=== PATIENT | female | born 1955 | race African-American/Black ===

== ENCOUNTER 2019-10-26 22:34 | Inpatient (IN) | payer OTHER, MEDICAID ==
[~2019-10-26] VITALS: Ht 162.6 cm; Wt 104.4 kg
[~2019-10-26 22:34] MED LIST: ALBU18HF2 IH; P50 PO; THEO200T17 PO
[2019-10-27] VITALS (14 sets, daily range): BP systolic 88–171; BP diastolic 36–119
[2019-10-27] MEDS ORDERED: ONDANSETRON HCL 4MG/2ML INJ IV STA (00:08)
[2019-10-27] MEDS ORDERED: METHYLPREDNISOLONE SOD SUCC 125 MG/2 ML VIAL IV STA (00:08)
[2019-10-27] MEDS ORDERED: IPRATROPIUM BROMIDE (0.02%) 0.5MG/2.5ML NEB HHN STA (00:08)
[2019-10-27] MEDS ORDERED: MAGNESIUM 2 G PREMIX 50 ML IV ONE (00:15)
[2019-10-27 00:46] LABS: HEMATOCRIT. 40.4 % (36.0-48.0); HEMOGLOBIN. 13.3 g/dL (12.0-16.0); MEAN CORPUSCULAR HEMOGLOBIN 26.9 pg (28.0-32.0); MEAN CORPUSCULAR VOLUME 81.7 fL (81.0-99.0); MEAN PLATELET VOLUME 9.2 fl (7.4-10.4); PLATELET 247 x1000/uL (130-400); RED BLOOD CELL COUNT 4.95 mill/uL (4.2-5.4); RED CELL DISTRIBUTION WIDTH 13.9 % (11.6-14.6)
[2019-10-27 00:54] LABS: CHLORIDE 105 mEq/L (98-107)
[2019-10-27] MEDS: ALBUTEROL (0.083%) 2.5MG/3ML NEB HHN SCH ×3 (00:58→02:35)
[2019-10-27 04:59] LABS: BG BASE EXCESS -0.1 mmol/L (-2.0-2.0); BG BILEVEL POS AIRWAY PRESSURE 15/5; BG CARBOXYHEMOGLOBIN 0.1 % (0.5-1.5); BG DEOXYHEMOGLOBIN 2.2 % (0.0-5.0); BG FRACTION INSPIRED OXYGEN 50; BG HCO3 ACT 25.4 mmol/L (22.0-26.0); BG METHEMOGLOBIN 0.2 % (0.0-1.5); BG OXYGEN SATURATION 97.8 % (92.0-98.5); BG OXYHEMOGLOBIN 97.5 % (94.0-97.0); BG PCO2 44.4 mmHg (35.0-45.0); BG PH 7.375 (7.350-7.450); BG PO2 107.4 mmHg (75.0-100.0); BG SAMPLE SITE RIGHT RADIAL; BG TOTAL HEMOGLOBIN 12.8 g/dL (12.0-18.0); BG VENT MODE MASK - BIPAP; BG VENT RATE 20 set
[2019-10-27 05:28] LABS: PLATELET ESTIMATE NORMAL
[2019-10-27] MEDS ORDERED: ALBUTEROL (0.083%) 2.5MG/3ML NEB HHN STA (07:34)
[2019-10-27] MEDS ORDERED: POTASSIUM CHLORIDE 20MEQ TABLET SR PO ONE (08:30)
[2019-10-27] MEDS ORDERED: ACETAMINOPHEN 325MG TABLET PO PRN (08:30)
[2019-10-27] MEDS ORDERED: ONDANSETRON HCL 4MG/2ML INJ IV PRN (08:30)
[2019-10-27] MEDS ORDERED: METHYLPREDNISOLONE SOD SUCC 125 MG/2 ML VIAL IV SCH (08:30)
[2019-10-27] MEDS ORDERED: GUAIFENESIN 200MG/10ML SUGAR FREE UDC PO PRN (08:30)
[2019-10-27] MEDS ORDERED: LORAZEPAM 0.5MG TABLET PO PRN (08:30)
[2019-10-27] MEDS ORDERED: IPRATROPIUM/ALBUTEROL 0.5-3(2.5)MG/3ML NEB HHN PRN ×2 (08:30→15:00)
[2019-10-27 10:10] LABS: *AMPHETAMINES SCREEN URINE NEGATIVE (NEGATIVE); *BARBITURATES SCREEN URINE NEGATIVE (NEGATIVE); *BENZODIAZEPINES SCREEN URINE NEGATIVE (NEGATIVE); *COCAINE SCREEN URINE NEGATIVE (NEGATIVE); METHADONE URINE SCREEN NEGATIVE (NEGATIVE); OPIATES URINE SCREEN NEGATIVE (NEGATIVE)
[2019-10-27 10:11] LABS: CANNABINOID URINE SCREEN PRESUMTIVE POSITIVE (NEGATIVE); PHENCYCLIDINE URINE SCREEN NEGATIVE (NEGATIVE)
[2019-10-27] MEDS: CLONIDINE 0.1MG TABLET PO PRN (11:03)
[2019-10-27] MEDS ORDERED: IPRATROPIUM BROMIDE (0.02%) 0.5MG/2.5ML NEB HHN PRN (13:00)
[2019-10-27] MEDS: METHYLPREDNISOLONE SOD SUCC 125 MG/2 ML VIAL IV SCH ×4 (13:46→20:06)
[2019-10-27] MEDS: IPRATROPIUM BROMIDE (0.02%) 0.5MG/2.5ML NEB HHN SCH ×3 (15:25→21:04)
[2019-10-27] MEDS: AMLODIPINE 5MG TABLET PO SCH (15:47)
[2019-10-27] MEDS ORDERED: IPRATROPIUM/ALBUTEROL 0.5-3(2.5)MG/3ML NEB HHN SCH (16:00)
[2019-10-27 18:29] LABS: BG BASE EXCESS 1.4 mmol/L (-2.0-2.0); BG BILEVEL POS AIRWAY PRESSURE 15/5 (16); BG CARBOXYHEMOGLOBIN 0.2 % (0.5-1.5); BG DEOXYHEMOGLOBIN 3.4 % (0.0-5.0); BG FRACTION INSPIRED OXYGEN 35; BG HCO3 ACT 29.9 mmol/L (22.0-26.0); BG METHEMOGLOBIN 0.2 % (0.0-1.5); BG OXYGEN SATURATION 96.6 % (92.0-98.5); BG OXYHEMOGLOBIN 96.2 % (94.0-97.0); BG PCO2 65.2 mmHg (35.0-45.0); BG PH 7.279 (7.350-7.450); BG PO2 93.4 mmHg (75.0-100.0); BG SAMPLE SITE RIGHT RADIAL; BG TOTAL HEMOGLOBIN 13.8 g/dL (12.0-18.0); BG VENT MODE MASK - BIPAP
[2019-10-27] MEDS: ENOXAPARIN 30MG/0.3ML SYR SUBCUT SCH (20:06)
[2019-10-27] MEDS: FLUTICASONE PROPIONATE 50MCG/SPRAY BOTTLE BOTHNSTRLS SCH (20:07)
[2019-10-27] MEDS: GUAIFENESIN 600MG ER TABLET PO SCH (20:07)
[2019-10-27] MEDS: OSELTAMIVIR 75MG CAPSULE PO SCH (20:07)
[2019-10-27] MEDS ORDERED: FENTANYL CITRATE/PF 500 MCG in SODIUM CHLORIDE 0.9% 40 ML IV PRN (21:15)
[2019-10-27] MEDS ORDERED: PROPOFOL 10MG/ML 100ML 100 ML IV PRN (21:15)
[2019-10-27] MEDS ORDERED: LORAZEPAM 2MG/ML CPJ ONE (22:08)
[2019-10-27] MEDS ORDERED: SUCCINYLCHOLINE CHLORIDE 200MG/10ML IV ONE (22:30)
[2019-10-27] MEDS ORDERED: ETOMIDATE 2MG/ML 10ML VIAL IV ONE (22:30)
[2019-10-27] MEDS ORDERED: ATROPINE SULFATE 1MG/10ML SYR ONE (22:30)
[2019-10-27 22:47] LABS: BG BASE EXCESS -0.4 mmol/L (-2.0-2.0); BG CARBOXYHEMOGLOBIN 0.5 % (0.5-1.5); BG DEOXYHEMOGLOBIN 5.1 % (0.0-5.0); BG FRACTION INSPIRED OXYGEN 40; BG METHEMOGLOBIN 0.3 % (0.0-1.5); BG OXYGEN SATURATION 94.9 % (92.0-98.5); BG OXYHEMOGLOBIN 94.1 % (94.0-97.0); BG PCO2 71.6 mmHg (35.0-45.0); BG PH 7.225 (7.350-7.450); BG PO2 84.6 mmHg (75.0-100.0); BG SAMPLE SITE RIGHT RADIAL; BG TIDAL VOLUME(mL) 500 mL; BG TOTAL HEMOGLOBIN 13.5 g/dL (12.0-18.0); BG VENT MODE VENT - A/C; BG VENT RATE 16 set
[2019-10-28] VITALS (96 sets, daily range): BP systolic 80–126; BP diastolic 17–88
[2019-10-28] MEDS: IPRATROPIUM BROMIDE (0.02%) 0.5MG/2.5ML NEB HHN SCH ×6 (01:04→21:49)
[2019-10-28] MEDS: PROPOFOL 10MG/ML 100ML 100 ML IV PRN ×6 (01:25→22:54)
[2019-10-28] MEDS: METHYLPREDNISOLONE SOD SUCC 125 MG/2 ML VIAL IV SCH ×2 (01:45→09:48)
[2019-10-28 06:08] LABS: HEMATOCRIT. 40.2 % (36.0-48.0); HEMOGLOBIN. 12.9 g/dL (12.0-16.0); MEAN CORPUSCULAR HEMOGLOBIN 26.9 pg (28.0-32.0); MEAN CORPUSCULAR VOLUME 83.7 fL (81.0-99.0); MEAN PLATELET VOLUME 9.6 fl (7.4-10.4); PLATELET 240 x1000/uL (130-400)
[2019-10-28 06:31] LABS: CHLORIDE 105 mEq/L (98-107)
[2019-10-28 08:14] LABS: BG BASE EXCESS 4.5 mmol/L (-2.0-2.0); BG CARBOXYHEMOGLOBIN 0.3 % (0.5-1.5); BG DEOXYHEMOGLOBIN 0.8 % (0.0-5.0); BG HCO3 ACT 31.2 mmol/L (22.0-26.0); BG METHEMOGLOBIN 0.2 % (0.0-1.5); BG OXYGEN SATURATION 99.2 % (92.0-98.5); BG OXYHEMOGLOBIN 98.7 % (94.0-97.0); BG PCO2 55.3 mmHg (35.0-45.0); BG PH 7.369 (7.350-7.450); BG PO2 189.4 mmHg (75.0-100.0); BG SAMPLE SITE RIGHT RADIAL; BG TIDAL VOLUME(mL) 500 mL; BG TOTAL HEMOGLOBIN 13.2 g/dL (12.0-18.0); BG VENT MODE VENT - A/C; BG VENT RATE 18 set
[2019-10-28] MEDS: AMLODIPINE 5MG TABLET PO SCH (09:00)
[2019-10-28] MEDS: OSELTAMIVIR 75MG CAPSULE PO SCH ×2 (09:50→20:16)
[2019-10-28] MEDS: GUAIFENESIN 600MG ER TABLET PO SCH ×2 (09:51→20:16)
[2019-10-28] MEDS: ENOXAPARIN 30MG/0.3ML SYR SUBCUT SCH ×2 (09:52→20:17)
[2019-10-28] MEDS: SODIUM CHLORIDE 0.9% 1,000 ML IV SCH ×2 (10:13→22:08)
[2019-10-28] MEDS: FLUTICASONE PROPIONATE 50MCG/SPRAY BOTTLE BOTHNSTRLS SCH (10:23)
[2019-10-28] MEDS: PANTOPRAZOLE SODIUM 40 MG/VIAL IV SCH (10:23)
[2019-10-28] MEDS ORDERED: METHYLPREDNISOLONE SOD SUCC 125 MG/2 ML VIAL IV SCH (12:00)
[2019-10-28 12:33] LABS: CLARITY URINE TURBID (CLEAR); COLOR URINE DK YELLOW (YELLOW); KETONES URINE NEGATIVE (NEGATIVE); LEUKOCYTE ESTERASE URINE NEGATIVE (NEGATIVE); NITRITE URINE NEGATIVE (NEGATIVE); OCCULT BLOOD URINE NEGATIVE (NEGATIVE); PROTEIN URINE 1+ (NEGATIVE); SPECIFIC GRAVITY URINE 1.026 (1.005-1.030); UROBILINOGEN URINE 0.2 E.U./dL (0.2-1.0)
[2019-10-28] MEDS ORDERED: CEFTRIAXONE 1 G PREMIX 50 ML IV SCH (13:00)
[2019-10-28] MEDS ORDERED: AZITHROMYCIN 500 MG in DEXT 5% WATER 250 ML IV SCH (14:00)
[2019-10-28 15:55] LABS: PLATELET ESTIMATE NORMAL
[2019-10-28 19:13] LABS: PROTHROMBIN TIME 10.5 sec (9.6-11.0)
[2019-10-28] MEDS: METHYLPREDNISOLONE SOD SUCC 40 MG/ML VIAL IV SCH (20:16)
[2019-10-29] VITALS (69 sets, daily range): BP systolic 86–150; BP diastolic 30–93
[2019-10-29] MEDS: IPRATROPIUM BROMIDE (0.02%) 0.5MG/2.5ML NEB HHN SCH ×6 (01:07→20:37)
[2019-10-29] MEDS: PROPOFOL 10MG/ML 100ML 100 ML IV PRN ×5 (02:59→20:16)
[2019-10-29] MEDS: METHYLPREDNISOLONE SOD SUCC 40 MG/ML VIAL IV SCH ×3 (04:04→20:41)
[2019-10-29 05:38] LABS: BASOPHILS % 0.1 % (0.0-2.0); HEMATOCRIT. 39.5 % (36.0-48.0); HEMOGLOBIN. 12.6 g/dL (12.0-16.0); MEAN CORPUSCULAR HEMOGLOBIN 26.9 pg (28.0-32.0); MEAN CORPUSCULAR VOLUME 84.5 fL (81.0-99.0); MEAN PLATELET VOLUME 9.4 fl (7.4-10.4); MONOCYTES % 9.9 % (2.0-8.0); PLATELET 175 x1000/uL (130-400); RED BLOOD CELL COUNT 4.67 mill/uL (4.2-5.4); RED CELL DISTRIBUTION WIDTH 14.1 % (11.6-14.6)
[2019-10-29 05:47] LABS: CHLORIDE 111 mEq/L (98-107)
[2019-10-29 05:58] LABS: LDL CHOLESTEROL 94 mg/dL (5-100)
[2019-10-29 06:00] LABS: PHOSPHORUS 3.6 mg/dL (2.5-4.9)
[2019-10-29 06:03] LABS: HDL CHOLESTEROL 61 mg/dL (40-59); T4 FREE 1.07 ng/dL (0.76-1.46)
[2019-10-29] MEDS: AMLODIPINE 5MG TABLET PO SCH (09:00)
[2019-10-29] MEDS: GUAIFENESIN 600MG ER TABLET PO SCH (09:00)
[2019-10-29] MEDS: PANTOPRAZOLE SODIUM 40 MG/VIAL IV SCH (09:52)
[2019-10-29] MEDS: OSELTAMIVIR 75MG CAPSULE PO SCH ×2 (09:52→20:41)
[2019-10-29] MEDS: ENOXAPARIN 30MG/0.3ML SYR SUBCUT SCH ×2 (09:53→20:41)
[2019-10-29 11:51] LABS: BG CARBOXYHEMOGLOBIN 0.3 % (0.5-1.5); BG DEOXYHEMOGLOBIN 2.8 % (0.0-5.0); BG FRACTION INSPIRED OXYGEN 40; BG HCO3 ACT 23.9 mmol/L (22.0-26.0); BG METHEMOGLOBIN 0.2 % (0.0-1.5); BG OXYGEN SATURATION 97.2 % (92.0-98.5); BG OXYHEMOGLOBIN 96.7 % (94.0-97.0); BG PCO2 50.2 mmHg (35.0-45.0); BG PH 7.295 (7.350-7.450); BG PO2 116.2 mmHg (75.0-100.0); BG SAMPLE SITE RIGHT BRACHIAL; BG TIDAL VOLUME(mL) 500 mL; BG TOTAL HEMOGLOBIN 12.8 g/dL (12.0-18.0); BG VENT MODE VENT - A/C; BG VENT RATE 18 set
[2019-10-29 13:21] LABS: BG CARBOXYHEMOGLOBIN 0.3 % (0.5-1.5); BG DEOXYHEMOGLOBIN 2.3 % (0.0-5.0); BG FRACTION INSPIRED OXYGEN 40; BG HCO3 ACT 26.7 mmol/L (22.0-26.0); BG METHEMOGLOBIN 0.1 % (0.0-1.5); BG OXYGEN SATURATION 97.7 % (92.0-98.5); BG OXYHEMOGLOBIN 97.3 % (94.0-97.0); BG PCO2 52.3 mmHg (35.0-45.0); BG PH 7.326 (7.350-7.450); BG PO2 120.7 mmHg (75.0-100.0); BG SAMPLE SITE RIGHT RADIAL; BG TIDAL VOLUME(mL) 500 mL; BG TOTAL HEMOGLOBIN 12.9 g/dL (12.0-18.0); BG VENT MODE VENT - A/C; BG VENT RATE 20 set
[2019-10-29] MEDS: SODIUM CHLORIDE 0.9% 1,000 ML IV SCH ×3 (14:36→21:49)
[2019-10-29] MEDS: PIPERACILLIN/TAZOBACTAM 3.375 G in DEXT 5% WATER 100 ML IV SCH (22:27)
[2019-10-30] VITALS (86 sets, daily range): BP systolic 83–155; BP diastolic 20–105
[2019-10-30] MEDS: IPRATROPIUM BROMIDE (0.02%) 0.5MG/2.5ML NEB HHN SCH ×6 (00:36→20:25)
[2019-10-30] MEDS: PROPOFOL 10MG/ML 100ML 100 ML IV PRN ×5 (01:54→22:06)
[2019-10-30] MEDS: METHYLPREDNISOLONE SOD SUCC 40 MG/ML VIAL IV SCH ×3 (03:26→20:06)
[2019-10-30 05:25] LABS: HEMATOCRIT. 37.3 % (36.0-48.0); HEMOGLOBIN. 11.9 g/dL (12.0-16.0); MEAN CORPUSCULAR HEMOGLOBIN 26.9 pg (28.0-32.0); MEAN CORPUSCULAR VOLUME 84.2 fL (81.0-99.0); MEAN PLATELET VOLUME 9.8 fl (7.4-10.4); PLATELET 188 x1000/uL (130-400); RED BLOOD CELL COUNT 4.43 mill/uL (4.2-5.4); RED CELL DISTRIBUTION WIDTH 14.4 % (11.6-14.6)
[2019-10-30 05:42] LABS: CHLORIDE 112 mEq/L (98-107)
[2019-10-30] MEDS: PIPERACILLIN/TAZOBACTAM 3.375 G in DEXT 5% WATER 100 ML IV SCH ×4 (06:25→23:06)
[2019-10-30 07:53] LABS: BG BASE EXCESS -0.3 mmol/L (-2.0-2.0); BG CARBOXYHEMOGLOBIN 0.3 % (0.5-1.5); BG DEOXYHEMOGLOBIN 1.2 % (0.0-5.0); BG FRACTION INSPIRED OXYGEN 40; BG HCO3 ACT 25.1 mmol/L (22.0-26.0); BG OXYGEN SATURATION 98.8 % (92.0-98.5); BG OXYHEMOGLOBIN 98.5 % (94.0-97.0); BG PH 7.374 (7.350-7.450); BG PO2 172.6 mmHg (75.0-100.0); BG SAMPLE SITE RIGHT RADIAL; BG TIDAL VOLUME(mL) 500 mL; BG VENT MODE VENT - A/C; BG VENT RATE 20 set
[2019-10-30 08:57] LABS: PLATELET ESTIMATE NORMAL
[2019-10-30] MEDS: AMLODIPINE 5MG TABLET PO SCH (09:00)
[2019-10-30] MEDS: OSELTAMIVIR 75MG CAPSULE PO SCH ×2 (09:44→20:06)
[2019-10-30] MEDS: PANTOPRAZOLE SODIUM 40 MG/VIAL IV SCH (09:44)
[2019-10-30] MEDS: ENOXAPARIN 30MG/0.3ML SYR SUBCUT SCH ×2 (09:44→20:07)
[2019-10-30] MEDS: SODIUM CHLORIDE 0.9% 1,000 ML IV SCH (12:30)
[2019-10-31] VITALS (84 sets, daily range): BP systolic 98–202; BP diastolic 34–124
[2019-10-31] MEDS: IPRATROPIUM BROMIDE (0.02%) 0.5MG/2.5ML NEB HHN SCH ×6 (00:26→20:51)
[2019-10-31] MEDS: PROPOFOL 10MG/ML 100ML 100 ML IV PRN ×4 (02:26→21:12)
[2019-10-31] MEDS: METHYLPREDNISOLONE SOD SUCC 40 MG/ML VIAL IV SCH ×3 (03:09→20:27)
[2019-10-31 05:32] LABS: HEMATOCRIT. 36.1 % (36.0-48.0); HEMOGLOBIN. 11.6 g/dL (12.0-16.0); LYMPHOCYTES % 7.2 % (20.0-50.0); MEAN CORPUSCULAR HEMOGLOBIN 26.7 pg (28.0-32.0); MEAN CORPUSCULAR VOLUME 82.9 fL (81.0-99.0); MEAN PLATELET VOLUME 9.6 fl (7.4-10.4); MONOCYTES % 11.8 % (2.0-8.0); PLATELET 186 x1000/uL (130-400); RED BLOOD CELL COUNT 4.35 mill/uL (4.2-5.4)
[2019-10-31 05:37] LABS: CHLORIDE 112 mEq/L (98-107)
[2019-10-31] MEDS: PIPERACILLIN/TAZOBACTAM 3.375 G in DEXT 5% WATER 100 ML IV SCH ×4 (06:17→23:27)
[2019-10-31 07:54] LABS: BG BASE EXCESS 2.4 mmol/L (-2.0-2.0); BG CARBOXYHEMOGLOBIN 0.3 % (0.5-1.5); BG DEOXYHEMOGLOBIN 1.1 % (0.0-5.0); BG FRACTION INSPIRED OXYGEN 40; BG HCO3 ACT 28.5 mmol/L (22.0-26.0); BG METHEMOGLOBIN 0.1 % (0.0-1.5); BG OXYGEN SATURATION 98.9 % (92.0-98.5); BG OXYHEMOGLOBIN 98.5 % (94.0-97.0); BG PCO2 50.9 mmHg (35.0-45.0); BG PH 7.366 (7.350-7.450); BG PO2 172.9 mmHg (75.0-100.0); BG SAMPLE SITE RIGHT RADIAL; BG TIDAL VOLUME(mL) 500 mL; BG TOTAL HEMOGLOBIN 12.3 g/dL (12.0-18.0); BG VENT MODE VENT - A/C; BG VENT RATE 18 set
[2019-10-31] MEDS: OSELTAMIVIR 75MG CAPSULE PO SCH ×2 (08:48→20:27)
[2019-10-31] MEDS: ENOXAPARIN 30MG/0.3ML SYR SUBCUT SCH ×2 (08:48→20:28)
[2019-10-31] MEDS: PANTOPRAZOLE SODIUM 40 MG/VIAL IV SCH (08:48)
[2019-10-31] MEDS: AMLODIPINE 5MG TABLET PO SCH (08:50)
[2019-10-31] MEDS: SODIUM CHLORIDE 0.9% 1,000 ML IV SCH (08:50)
[2019-10-31] MEDS: HYDROCODONE/ACETAMINOPHEN 5/325MG TABLET PO PRN ×2 (14:52→20:28)
[2019-10-31] MEDS: CLONIDINE 0.1MG TABLET PO PRN (16:26)
[2019-10-31] MEDS ORDERED: LORAZEPAM 2MG/ML CPJ IV PRN (18:00)
[2019-10-31 20:59] LABS: BG BASE EXCESS 4.2 mmol/L (-2.0-2.0); BG CARBOXYHEMOGLOBIN 0.1 % (0.5-1.5); BG DEOXYHEMOGLOBIN 2.3 % (0.0-5.0); BG FRACTION INSPIRED OXYGEN 40; BG HCO3 ACT 32.8 mmol/L (22.0-26.0); BG METHEMOGLOBIN 0.3 % (0.0-1.5); BG OXYGEN SATURATION 97.7 % (92.0-98.5); BG OXYHEMOGLOBIN 97.3 % (94.0-97.0); BG PCO2 69.7 mmHg (35.0-45.0); BG PH 7.291 (7.350-7.450); BG PO2 116.6 mmHg (75.0-100.0); BG SAMPLE SITE RIGHT RADIAL; BG TOTAL HEMOGLOBIN 13.3 g/dL (12.0-18.0); BG VENT MODE VENT - CPAP
[2019-11-01] VITALS (88 sets, daily range): BP systolic 98–205; BP diastolic 61–118
[2019-11-01] MEDS: IPRATROPIUM BROMIDE (0.02%) 0.5MG/2.5ML NEB HHN SCH ×6 (00:35→20:50)
[2019-11-01] MEDS: METHYLPREDNISOLONE SOD SUCC 40 MG/ML VIAL IV SCH ×3 (04:01→20:42)
[2019-11-01] MEDS: PROPOFOL 10MG/ML 100ML 100 ML IV SCH ×3 (04:01→20:41)
[2019-11-01] MEDS: PIPERACILLIN/TAZOBACTAM 3.375 G in DEXT 5% WATER 100 ML IV SCH ×4 (05:11→23:19)
[2019-11-01 05:50] LABS: BASOPHILS % 0.1 % (0.0-2.0); HEMATOCRIT. 38.8 % (36.0-48.0); HEMOGLOBIN. 12.3 g/dL (12.0-16.0); MEAN CORPUSCULAR HEMOGLOBIN 26.6 pg (28.0-32.0); MEAN CORPUSCULAR VOLUME 84.5 fL (81.0-99.0); MEAN PLATELET VOLUME 10.1 fl (7.4-10.4); MONOCYTES % 9.6 % (2.0-8.0); NEUTROPHILS % 80.3 % (40.0-76.0); PLATELET 156 x1000/uL (130-400); RED CELL DISTRIBUTION WIDTH 14.3 % (11.6-14.6)
[2019-11-01 05:59] LABS: CHLORIDE 110 mEq/L (98-107)
[2019-11-01] MEDS ORDERED: ENOXAPARIN 40MG/0.4ML SYR SUBCUT SCH (09:00)
[2019-11-01] MEDS: PANTOPRAZOLE SODIUM 40 MG/VIAL IV SCH (09:06)
[2019-11-01] MEDS: OSELTAMIVIR 75MG CAPSULE PO SCH ×2 (09:06→20:42)
[2019-11-01] MEDS: AMLODIPINE 5MG TABLET PO SCH (09:07)
[2019-11-01] MEDS ORDERED: LORAZEPAM 2MG/ML CPJ IV PRN (14:45)
[2019-11-01] MEDS: SODIUM CHLORIDE 0.9% 1,000 ML IV SCH ×2 (15:00)
[2019-11-01] MEDS: ENOXAPARIN 30MG/0.3ML SYR SUBCUT SCH (20:42)
[2019-11-02] VITALS (97 sets, daily range): BP systolic 102–195; BP diastolic 44–125
[2019-11-02] MEDS: IPRATROPIUM BROMIDE (0.02%) 0.5MG/2.5ML NEB HHN SCH ×6 (00:46→20:03)
[2019-11-02] MEDS: PROPOFOL 10MG/ML 100ML 100 ML IV PRN ×3 (02:49→15:43)
[2019-11-02] MEDS: METHYLPREDNISOLONE SOD SUCC 40 MG/ML VIAL IV SCH ×3 (03:28→20:57)
[2019-11-02 05:14] LABS: BASOPHILS % 0.3 % (0.0-2.0); EOSINOPHILS % 0.1 % (0.0-5.0); HEMATOCRIT. 36.2 % (36.0-48.0); HEMOGLOBIN. 11.7 g/dL (12.0-16.0); LYMPHOCYTES % 11.4 % (20.0-50.0); MEAN CORPUSCULAR HEMOGLOBIN 26.9 pg (28.0-32.0); MEAN CORPUSCULAR VOLUME 83.3 fL (81.0-99.0); MEAN PLATELET VOLUME 9.7 fl (7.4-10.4); MONOCYTES % 7.9 % (2.0-8.0); NEUTROPHILS % 80.3 % (40.0-76.0); PLATELET 217 x1000/uL (130-400); RED BLOOD CELL COUNT 4.35 mill/uL (4.2-5.4); RED CELL DISTRIBUTION WIDTH 14.3 % (11.6-14.6)
[2019-11-02] MEDS: SODIUM CHLORIDE 0.9% 1,000 ML IV SCH ×2 (05:27→21:04)
[2019-11-02] MEDS: PIPERACILLIN/TAZOBACTAM 3.375 G in DEXT 5% WATER 100 ML IV SCH ×4 (05:27→23:28)
[2019-11-02 07:00] LABS: CHLORIDE 108 mEq/L (98-107)
[2019-11-02] MEDS: ENOXAPARIN 30MG/0.3ML SYR SUBCUT SCH ×2 (08:20→20:57)
[2019-11-02] MEDS: PANTOPRAZOLE SODIUM 40 MG/VIAL IV SCH (08:20)
[2019-11-02] MEDS: AMLODIPINE 5MG TABLET PO SCH (08:21)
[2019-11-02] MEDS ORDERED: LORAZEPAM 2MG/ML CPJ IV PRN (16:30)
[2019-11-02 18:00] LABS: BG BASE EXCESS 3.2 mmol/L (-2.0-2.0); BG CARBOXYHEMOGLOBIN 0.3 % (0.5-1.5); BG FRACTION INSPIRED OXYGEN 40; BG HCO3 ACT 30.5 mmol/L (22.0-26.0); BG METHEMOGLOBIN 0.2 % (0.0-1.5); BG OXYHEMOGLOBIN 97.5 % (94.0-97.0); BG PCO2 58.8 mmHg (35.0-45.0); BG PH 7.333 (7.350-7.450); BG PO2 117.7 mmHg (75.0-100.0); BG PRESSURE SUPPORT 10; BG SAMPLE SITE RIGHT RADIAL; BG TOTAL HEMOGLOBIN 12.9 g/dL (12.0-18.0); BG VENT MODE VENT - CPAP
[2019-11-03] VITALS (65 sets, daily range): BP systolic 74–188; BP diastolic 21–128
[2019-11-03] MEDS: IPRATROPIUM BROMIDE (0.02%) 0.5MG/2.5ML NEB HHN SCH ×6 (00:35→20:19)
[2019-11-03] MEDS: METHYLPREDNISOLONE SOD SUCC 40 MG/ML VIAL IV SCH ×3 (03:42→20:32)
[2019-11-03] MEDS: PIPERACILLIN/TAZOBACTAM 3.375 G in DEXT 5% WATER 100 ML IV SCH ×4 (05:14→23:33)
[2019-11-03 05:33] LABS: BASOPHILS % 0.1 % (0.0-2.0); HEMATOCRIT. 35.2 % (36.0-48.0); HEMOGLOBIN. 11.3 g/dL (12.0-16.0); LYMPHOCYTES % 8.9 % (20.0-50.0); MEAN CORPUSCULAR HEMOGLOBIN 26.7 pg (28.0-32.0); MEAN CORPUSCULAR VOLUME 82.8 fL (81.0-99.0); MEAN PLATELET VOLUME 10.1 fl (7.4-10.4); MONOCYTES % 7.5 % (2.0-8.0); NEUTROPHILS % 83.5 % (40.0-76.0); PLATELET 197 x1000/uL (130-400); RED BLOOD CELL COUNT 4.25 mill/uL (4.2-5.4); RED CELL DISTRIBUTION WIDTH 13.8 % (11.6-14.6)
[2019-11-03 05:34] LABS: CHLORIDE 108 mEq/L (98-107)
[2019-11-03] MEDS: ENOXAPARIN 30MG/0.3ML SYR SUBCUT SCH ×2 (08:06→20:32)
[2019-11-03] MEDS: AMLODIPINE 5MG TABLET PO SCH (08:06)
[2019-11-03] MEDS: PANTOPRAZOLE SODIUM 40 MG/VIAL IV SCH (08:06)
[2019-11-03] MEDS: CLONIDINE 0.1MG TABLET PO PRN (11:50)
[2019-11-03] MEDS: SODIUM CHLORIDE 0.9% 1,000 ML IV SCH (13:00)
[2019-11-03] MEDS ORDERED: LORAZEPAM 2MG/ML CPJ IV PRN (13:45)
[2019-11-03 15:24] LABS: BG BASE EXCESS 6.6 mmol/L (-2.0-2.0); BG CARBOXYHEMOGLOBIN 0.1 % (0.5-1.5); BG DEOXYHEMOGLOBIN 1.3 % (0.0-5.0); BG FRACTION INSPIRED OXYGEN 40; BG HCO3 ACT 31.7 mmol/L (22.0-26.0); BG METHEMOGLOBIN 0.2 % (0.0-1.5); BG OXYGEN SATURATION 98.7 % (92.0-98.5); BG OXYHEMOGLOBIN 98.4 % (94.0-97.0); BG PCO2 47.4 mmHg (35.0-45.0); BG PH 7.443 (7.350-7.450); BG PO2 141.9 mmHg (75.0-100.0); BG PRESSURE SUPPORT 10; BG SAMPLE SITE RIGHT RADIAL; BG TOTAL HEMOGLOBIN 12.3 g/dL (12.0-18.0); BG VENT MODE VENT - CPAP
[2019-11-04] VITALS (76 sets, daily range): BP systolic 96–193; BP diastolic 38–125
[2019-11-04] MEDS: IPRATROPIUM BROMIDE (0.02%) 0.5MG/2.5ML NEB HHN SCH ×6 (00:45→20:15)
[2019-11-04] MEDS: CLONIDINE 0.1MG TABLET PO PRN ×2 (01:37→07:31)
[2019-11-04] MEDS: METHYLPREDNISOLONE SOD SUCC 40 MG/ML VIAL IV SCH ×2 (03:02→20:49)
[2019-11-04] MEDS ORDERED: HYDRALAZINE 20MG/ML VIAL IV NR (04:15)
[2019-11-04] MEDS: PIPERACILLIN/TAZOBACTAM 3.375 G in DEXT 5% WATER 100 ML IV SCH ×4 (05:46→23:53)
[2019-11-04 05:56] LABS: BG BASE EXCESS 7.6 mmol/L (-2.0-2.0); BG CARBOXYHEMOGLOBIN 0.6 % (0.5-1.5); BG DEOXYHEMOGLOBIN 2.4 % (0.0-5.0); BG FRACTION INSPIRED OXYGEN 40; BG HCO3 ACT 32.4 mmol/L (22.0-26.0); BG METHEMOGLOBIN 0.2 % (0.0-1.5); BG OXYGEN SATURATION 97.6 % (92.0-98.5); BG OXYHEMOGLOBIN 96.8 % (94.0-97.0); BG PCO2 45.9 mmHg (35.0-45.0); BG PH 7.466 (7.350-7.450); BG PO2 96.6 mmHg (75.0-100.0); BG SAMPLE SITE RIGHT RADIAL; BG TOTAL HEMOGLOBIN 13.3 g/dL (12.0-18.0); BG VENT MODE MASK - AEROSOL
[2019-11-04] MEDS: SODIUM CHLORIDE 0.9% 1,000 ML IV SCH (06:00)
[2019-11-04 06:05] LABS: HEMATOCRIT. 39.5 % (36.0-48.0); HEMOGLOBIN. 12.7 g/dL (12.0-16.0); MEAN CORPUSCULAR HEMOGLOBIN 26.4 pg (28.0-32.0); MEAN CORPUSCULAR VOLUME 81.9 fL (81.0-99.0); PLATELET 280 x1000/uL (130-400); RED BLOOD CELL COUNT 4.83 mill/uL (4.2-5.4); RED CELL DISTRIBUTION WIDTH 14.1 % (11.6-14.6)
[2019-11-04 06:17] LABS: CHLORIDE 103 mEq/L (98-107)
[2019-11-04] MEDS: AMLODIPINE 5MG TABLET PO SCH (08:04)
[2019-11-04] MEDS: PANTOPRAZOLE SODIUM 40 MG/VIAL IV SCH (08:04)
[2019-11-04] MEDS: ENOXAPARIN 30MG/0.3ML SYR SUBCUT SCH ×2 (08:04→21:31)
[2019-11-04] MEDS: DILTIAZEM HCL 30MG TABLET PO SCH ×2 (13:26→22:09)
[2019-11-04] MEDS ORDERED: LORAZEPAM 2MG/ML CPJ IV PRN (13:45)
[2019-11-05] VITALS (67 sets, daily range): BP systolic 78–191; BP diastolic 18–110
[2019-11-05] MEDS: IPRATROPIUM BROMIDE (0.02%) 0.5MG/2.5ML NEB HHN SCH ×6 (00:08→21:12)
[2019-11-05] MEDS: SODIUM CHLORIDE 0.9% 1,000 ML IV SCH ×2 (03:37→18:48)
[2019-11-05 04:20] LABS: PLATELET ESTIMATE NORMAL
[2019-11-05] MEDS: PIPERACILLIN/TAZOBACTAM 3.375 G in DEXT 5% WATER 100 ML IV SCH ×3 (05:40→18:49)
[2019-11-05 05:42] LABS: HEMATOCRIT. 33.1 % (36.0-48.0); HEMOGLOBIN. 10.6 g/dL (12.0-16.0); MEAN CORPUSCULAR HEMOGLOBIN 26.3 pg (28.0-32.0); MEAN PLATELET VOLUME 8.9 fl (7.4-10.4); PLATELET 228 x1000/uL (130-400); RED BLOOD CELL COUNT 4.04 mill/uL (4.2-5.4); RED CELL DISTRIBUTION WIDTH 14.1 % (11.6-14.6)
[2019-11-05] MEDS: DILTIAZEM HCL 30MG TABLET PO SCH ×3 (06:14→21:43)
[2019-11-05 06:20] LABS: HEPATITIS B SURFACE ANTIGEN NEGATIVE
[2019-11-05 06:37] LABS: CHLORIDE 105 mEq/L (98-107)
[2019-11-05 06:49] LABS: HEPATITIS A AB IGM NEGATIVE (NEGATIVE)
[2019-11-05 07:38] LABS: BG BASE EXCESS 7.2 mmol/L (-2.0-2.0); BG BILEVEL POS AIRWAY PRESSURE 15/5; BG CARBOXYHEMOGLOBIN 0.3 % (0.5-1.5); BG DEOXYHEMOGLOBIN 0.8 % (0.0-5.0); BG HCO3 ACT 32.8 mmol/L (22.0-26.0); BG METHEMOGLOBIN 0.3 % (0.0-1.5); BG OXYGEN SATURATION 99.2 % (92.0-98.5); BG OXYHEMOGLOBIN 98.6 % (94.0-97.0); BG PCO2 51.1 mmHg (35.0-45.0); BG PH 7.425 (7.350-7.450); BG PO2 226.2 mmHg (75.0-100.0); BG SAMPLE SITE RIGHT RADIAL; BG TOTAL HEMOGLOBIN 11.8 g/dL (12.0-18.0); BG VENT MODE MASK - BIPAP; BG VENT RATE 16 set
[2019-11-05] MEDS: PANTOPRAZOLE SODIUM 40 MG/VIAL IV SCH (08:10)
[2019-11-05] MEDS: METHYLPREDNISOLONE SOD SUCC 40 MG/ML VIAL IV SCH ×2 (08:10→20:16)
[2019-11-05] MEDS: ENOXAPARIN 30MG/0.3ML SYR SUBCUT SCH ×2 (08:11→21:44)
[2019-11-05 11:15] LABS: PLATELET ESTIMATE NORMAL
[2019-11-05] MEDS: CLONIDINE 0.1MG TABLET PO PRN ×2 (11:55→18:48)
[2019-11-06] VITALS (9 sets, daily range): BP systolic 108–151; BP diastolic 56–78
[2019-11-06] MEDS: IPRATROPIUM BROMIDE (0.02%) 0.5MG/2.5ML NEB HHN SCH ×2 (01:15→05:14)
[2019-11-06] MEDS: DILTIAZEM HCL 30MG TABLET PO SCH (06:30)
[2019-11-06] MEDS: METHYLPREDNISOLONE SOD SUCC 40 MG/ML VIAL IV SCH (08:39)
[2019-11-06] MEDS: PANTOPRAZOLE SODIUM 40 MG/VIAL IV SCH (08:40)
[2019-11-06] MEDS: SODIUM CHLORIDE 0.9% 1,000 ML IV SCH (08:40)
[2019-11-06] MEDS: ENOXAPARIN 30MG/0.3ML SYR SUBCUT SCH (08:40)
[2019-11-06] MEDS ORDERED: CLONIDINE HCL 0.1MG/24HR PATCH TD SCH (09:00)
[2019-11-06] MEDS ORDERED: METHYLPREDNISOLONE SOD SUCC 40 MG/ML VIAL IV SCH (11:30)
== END 2019-11-06 13:39 | disposition home or self-care (01) | DRG 207 ==
LOC: ER 22:34 → 5EST 10-27 03:16 → EDBEDREQSVC 10-27 03:20 → EDBEDREQTM 10-27 03:20 → EDBEDREQ 10-27 03:20 → ENRESERV 10-27 07:45 → 5EST 10-27 10:35 → MICUSO 10-27 21:16 → 3WST 11-05 15:14
PROVIDERS: ADMIT Internal Medicine; ATTEND Internal Medicine
PROC: 5A1955Z Respiratory Ventilation, Greater than 96 Consecutive Hours (ICD-10-PCS; principal; 2019-10-27)
PROC: 5A09357 Assistance with Respiratory Ventilation, Less than 24 Consecutive Hours, Continuous Positive Airway Pressure (ICD-10-PCS; 2019-10-27)
PROC: 0BH17EZ Insertion of Endotracheal Airway into Trachea, Via Natural or Artificial Opening (ICD-10-PCS; 2019-10-27)
PROC: 06HY33Z Insertion of Infusion Device into Lower Vein, Percutaneous Approach (ICD-10-PCS; 2019-10-27)
DX: J96.02 Acute respiratory failure with hypercapnia (principal); J10.00 Influenza due to other identified influenza virus with unspecified type of pneumonia; J45.901 Unspecified asthma with (acute) exacerbation; J44.1 Chronic obstructive pulmonary disease with (acute) exacerbation; R65.10 Systemic inflammatory response syndrome (SIRS) of non-infectious origin without acute organ dysfunction; I10 Essential (primary) hypertension; E87.6 Hypokalemia; E66.9 Obesity, unspecified; F12.90 Cannabis use, unspecified, uncomplicated; I07.1 Rheumatic tricuspid insufficiency; R74.0 Nonspecific elevation of levels of transaminase and lactic acid dehydrogenase [LDH]; R73.9 Hyperglycemia, unspecified; T38.0X5A Adverse effect of glucocorticoids and synthetic analogues, initial encounter; Z82.49 Family history of ischemic heart disease and other diseases of the circulatory system; Z90.710 Acquired absence of both cervix and uterus; Z79.899 Other long term (current) drug therapy; Z78.1 Physical restraint status; Y92.89 Other specified places as the place of occurrence of the external cause; Z68.39 Body mass index [BMI] 39.0-39.9, adult
CPT/HCPCS: 36415; 36600; 71045; 76700; 80048; 80053; 80061; 80076; 80305; 81003; 82375; 82805; 83036; 83605; 83735; 83880; 84100; 84439; 84443; 84478; 84484; 85025; 86705; 86709; 86803; 87070; 87340; 87804; 93005; 93306; 93970; 94002; 94003; 94640; 94660; 96365; 97162; 99291; A6261; C9113; J0330; J0360; J0456; J0461; J0696; J1650; J2060; J2405; J2543; J2704; J2920; J2930; J3010; J3475; J3490; J7030; J7060; A4315